=== PATIENT | female | born 1930 | race Caucasian/White ===

== ENCOUNTER 2017-07-09 12:59 | Inpatient (IN) | payer OTHER ==
[~2017-07-09] VITALS: Ht 157.5 cm; Wt 67.1 kg
--- NOTE | 2017-07-09 13:03 | ED GENERAL ADULT ---
History of Present Illness General Chief Complaint: Nausea, Vomiting, Diarrhea Stated Complaint: BIBA NVD X 3 DAYS Source: patient, family, EMS Exam Limitations: language barrier Vital Signs & Intake/Output Vital Signs & Intake/Output Vital Signs Date Time Temp Pulse Resp B/P B/P Pulse O2 O2 Flow FiO2 Mean Ox Delivery Rate 07/10 799 98.1 101 26 142/6 96 Room Air 07/10 0000 98.1 82 20 140/58 94 Room Air Room Air 07/09 2029 96 Nasal 2.0L Cannula 07/09 2029 98.5 84 18 132/60 96 Nasal 2.0L Cannula 07/09 1928 98.3 54 95 133/85 94 Nasal 2.0L Cannula 07/09 1811 97.9 92 18 123/56 97 Nasal 2.0L Cannula 07/09 1615 98 Room Air Room Air 07/09 1611 97.5 83 18 130/63 98 Nasal 2.0L Cannula 07/09 1312 72 20 151/85 99 Room Air ED Intake and Output 07/10 0000 07/09 1200 Intake Total 2322 Output Total 1750 Balance 572 Intake, IV 2122 Intake, Oral 200 Number 0 Bowel Movements Output, Urine 1750 Patient 155 lb Weight Weight Bed scale Measurement Method Allergies Coded Allergies: No Known Allergies (07/09/17) Triage Nurses Notes Reviewed? yes Onset: Gradual Duration: day(s): (3) Timing: remote history Injury Environment: home Severity: moderate No Modifying Factors: none Associated Symptoms: N/V : No Patient currently breastfeeds: No HPI: Patient is a 86-year-old female with history of hyperlipidemia, hyperthyroid presenting to the emergency with chief complaint of nausea vomiting and diarrhea. For the past 3 days. Patient also reports associated generalized abdominal discomfort. She reports that the nausea and vomiting and diarrhea started today. 3 episodes of emesis, 2 episodes of diarrhea. Diarrhea was loose and watery. No blood in the emesis or stool. No sick contacts or recent travel. Denies recent antibiotic use. Denies any fevers or chills. Positive malaise. Has not taken anything at home to help with symptoms. She tried eating a small amount of redness was morning without success and she vomited it up. No one else in the house is sick. Denies any urinary frequency urgency or dysuria. No chest pain palpitations or shortness of breath. Denies any back pain. No numbness or tingling. (Tanya Phillips) Reconcile Medications Alprazolam 0.5 MG TABLET 1 TAB PO DAILY NEEDED anxiety (Reported) Aspirin (Aspirin*) 81 MG TAB.CHEW 1 TAB PO DAILY cholesterol (Reported) Levothyroxine Sodium 100 MCG TABLET 1 TAB PO DAILY hypothryoid (Reported) Simvastatin (Simvastatin*) 80 MG TABLET 1 TAB PO DAILY cholesterol (Reported) (Nazia Zaman MD) Past History Travel History Traveled to [place] past 21 day No Medical History Any Pertinent Medical History? see below for history Surgical History Surgical History: bladder sx Family History Hx Contributory? No (Tanya Phillips) Medical History Cardiovascular: hyperlipidemia Endocrine: HYPERTHYROIDISM (Nazia Zaman MD) Review of Systems Review of Systems Constitutional: Reports: see HPI, malaise. Comments Review of systems: See HPI, All other systems negative. Constitutional, no chills fever or weight loss HEENT: No visual changes no sore throat no congestion Cardiovascular: No chest pain ,palpitation , orthopnea or ankle swelling Skin, no jaundice no rashes Respiratory: No dyspnea cough sputum or hemoptysis GI: Positive nausea, vomiting and diarrhea : No dysuria No hematuria Muscle skeletal: no back pain, no neck pain, Neurologic: No numbness no confusion no headaches Psych: No stress anxiety or depression,. Heme/endocrine: No bruising no bleeding no polyuria or polydipsia Immunology: No splenectomy or history of AIDS (Tanya Phillips) Physical Exam Physical Exam General Appearance: well developed/nourished, alert, awake, anxious, comfortable Comments: Well-developed well-nourished person in no acute distress HEENT: Pupils equally round and reactive to light and accommodation. Nose is atraumatic. External auditory canal and Tympanic membranes clear. Pharynx normal. No swelling or edema. Dry oral mucosa. Clearing secretions without difficulty Neck: Supple, no lymphadenopathy Back: Nontender, no CVA tenderness. Feces noted coming up from pants at the pant line. Cardiovascular: Regular rate and rhythms no murmurs rubs or gallops, normal JVP Respiratory: Chest nontender. No respiratory distress.breath sounds slightly diminished to auscultation bilaterally Abdomen: Soft, mildly tender to palpation of the left and right lower quadrants without rebound or guarding. Also tender to palpation in the epigastric region without rebound or guarding. Nondistended, no appreciable organomegaly. Hyperactive bowel sounds. No ascites Extremity: No edema, no calf tenderness to palpation, normal and equal pulses. Neuro: Alert oriented x3, motor sensory normal, cranial nerves II through XII grossly intact. Skin: No appreciable rash on exposed skin, skin is warm and dry. Psych: Slightly anxious appearing, memory and judgment is normal. Core Measures ACS in differential dx? Yes CVA/TIA Diagnosis: No Sepsis Present: No Sepsis Focused Exam Completed? No (Irina KU,Tanya) Progress Differential Diagnoses I considered the following diagnoses in my evaluation of the patient: Gastroenteritis, pancreatitis, gastritis, dehydration, electrolyte abnormality, diverticulitis, ischemic bowel, nonspecific colitis, ACS, uti, pyelo Plan of Care: Orders Procedure Date/time Status ICU LAB BUNDLE 07/11 0500 Active CBC WITHOUT DIFFERENTIAL 07/11 0500 Active Regular Diet 07/10 L Active ICU LAB BUNDLE 07/10 1400 Active ICU LAB BUNDLE 07/10 1000 Complete BASIC ELECTROLYTES PLUS BUN&CR 07/10 0600 Complete BASIC ELECTROLYTES PLUS BUN&CR 07/10 0400 Complete Weight 07/10 UNK Active Intake & Output 07/10 UNK Complete Regular Diet 07/09 D Complete ICU LAB BUNDLE 07/09 2327 Complete CULTURE,URINE 07/09 2247 Active Wound Care/Dressing 07/09 2056 Complete Weight 07/09 2056 Complete VTE Mechanical Prophylaxis 07/09 2056 Active Vital Signs 07/09 2056 Active Turn and Reposition 07/09 2056 Complete Drains/Tubes 07/09 2056 Complete Teach/Educate 07/09 2056 Active Skin Integrity Protocol 07/09 2056 Complete Skin/Pressure Ulcer Assess (Sk 07/09 2056 Active Precautions 07/09 2056 Active Pain Treatment and Response 07/09 2056 Active Nutritional Intake, Monitor 07/09 2056 Active Isolation 07/09 2056 Active CIWA 07/09 2056 Complete Patient Care Conference 07/09 2056 Active Activity/Ambulation 07/09 2056 Active VRE ACTIVE SURVIELLANCE 07/09 1951 Active ACTIVE SURVEILLANCE NARES 07/09 1951 Active FingerStick- Glucose 07/09 193 Active URINE LYTES, SPOT 07/09 1845 Complete MAGNESIUM 07/09 1800 Complete BASIC ELECTROLYTES PLUS BUN&CR 07/09 1800 Complete STOOL: R/O YERSINIA 07/09 1727 Active STOOL:R/O VIBRIO 07/09 1727 Active OVA AND PARASITE ANTIGENS 07/09 1727 Active CULTURE,STOOL 07/09 1555 Active C.DIFFICILE 07/09 1555 Active Add-on Test (ER Only) 07/09 1550 Active ED Holding Orders 07/09 1548 Active Admit to inpatient 07/09 1548 Active Vital Signs 07/09 1548 Active Code Status 07/09 1548 Active Patient Data 07/09 1546 Active Add-on Test (ER Only) 07/09 1546 Active CULTURE,URINE 07/09 1520 Active Intake & Output 07/09 1458 Active THYROID STIMULATING HORMONE 07/09 1412 Complete SERUM OSMOLALITY 07/09 1412 Complete FREE T4 07/09 1412 Complete OXYGEN SETUP CHG 07/09 UNK Complete OXYGEN 07/09 UNK Complete OXYGEN TRANSPORT 07/09 UNK Complete OXYGEN SETUP (GEN) 07/09 UNK Complete VTE Mechanical Prophylaxis 07/09 UNK Active Ashley, Insertion/Removal/Asses 07/09 UNK Active Current Medications Sig/Octavio Start time Last Medication Dose Stop Time Status Admin Desmopressin Acetate 1 MCG BID 07/11 1000 CAN (DDAVP) Desmopressin Acetate 1 MCG BID 07/11 1000 AC (DDAVP) Sodium Chloride 50 ML (Normal Saline 50ML Bag) Atorvastatin Calcium 20 MG 1700 07/10 1700 AC (Lipitor) Enoxaparin Sodium 40 MG DAILY 07/10 1000 AC 07/10 (Lovenox) 0911 Levothyroxine Sodium 0.1 MG DAILY AC 07/10 0700 AC 07/10 (Synthroid) 0629 Dextrose/Water 1,000 ML Q13H 07/10 0215 AC 07/10 (D5W 1000) 1232 Ceftriaxone Sodium 1,000 MG DAILY 07/09 2045 AC 07/10 (Rocephin) 0911 Dextrose 25 GM ONCE ONE 07/09 1800 CAN (Dextrose 50%) 07/09 1801 Alprazolam 0.5 MG DAILY NEEDED 07/09 1715 AC 07/09 (Xanax) 07/16 1714 2319 Laboratory Tests 07/10/17 0942: Anion Gap 15, Estimated GFR > 60, Glucose 122 H, Calcium 8.0 L, Phosphorus 2.5 , Magnesium 2.0, Total Bilirubin 0.2, AST 27, ALT 33, Albumin 3.4 L 07/10/17 0605: Anion Gap 12, Estimated GFR > 60, BUN/Creatinine Ratio 22.0 07/10/17 0300: Anion Gap 11, Estimated GFR > 60, BUN/Creatinine Ratio 22.0 07/09/17 2345: Anion Gap 13, Estimated GFR > 60, Glucose 116 H, Calcium 8.5, Phosphorus 3.6, Magnesium 2.5 H, Total Bilirubin 0.4, AST 26, ALT 33, Albumin 3.5 07/09/17 2300: Sodium Cancelled, Potassium Cancelled, Chloride Cancelled, Carbon Dioxide Cancelled, Anion Gap Cancelled, BUN Cancelled, Creatinine Cancelled, BUN/ Creatinine Ratio Cancelled 07/09/17 2200: Sodium Cancelled, Potassium Cancelled, Chloride Cancelled, Carbon Dioxide Cancelled, Anion Gap Cancelled, BUN Cancelled, Creatinine Cancelled, BUN/ Creatinine Ratio Cancelled 07/09/17 1919: Anion Gap 13, Estimated GFR > 60, BUN/Creatinine Ratio 18.0, Magnesium 1.5 L 07/09/17 1845: Ur Random Creatinine 32, Ur Random Sodium 107 H, Ur Random Potassium 58, Fraction Sodium Excret 1.4 H 07/09/17 1616: Lactic Acid 1.6 07/09/17 1546: Urine Total Volume Cancelled, Ur Sodium 24 Hour Cancelled, Ur Potassium 24 Hour Cancelled 07/09/17 1520: Urine Color YEL, Urine Clarity HAZY H, Urine pH 7.0, Ur Specific [place] 1.010, Urine Protein NEG, Urine Ketones 15 H, Urine Nitrite POS H, Urine Bilirubin NEG, Urine Urobilinogen 0.2, Ur Leukocyte Esterase LARGE H, Ur Microscopic SEDIMENT EXAMINED, Urine RBC RARE, Urine WBC 50-75 H, Ur Epithelial Cells FEW, Urine Bacteria MANY H, Urine Hemoglobin TRACE-INTACT, Urine Glucose NEG 07/09/17 1412: Anion Gap 15, Estimated GFR > 60, BUN/Creatinine Ratio 26.0 H, Glucose 156 H, Serum Osmolality 260 L, Lactic Acid 2.6 H, Calcium 9.0, Total Bilirubin 0.7, AST 27, ALT 30, Alkaline Phosphatase 61, Troponin I < 0.01, Total Protein 6.8, Albumin 3.9, Globulin 2.9, Albumin/Globulin Ratio 1.3, Amylase 40, Lipase 95, TSH 1.500, Free T4 1.20, CBC w Diff NO MAN DIFF REQ, RBC 3.96 L, MCV 96.3, MCH 33.0 H, RDW 12.2, MPV 8.1, Gran % 81.3 H, Lymphocytes % 12.0 L, Monocytes % 6.3, Eosinophils % 0.1, Basophils % 0.3, Absolute Granulocytes 7.7 H, Absolute Lymphocytes 1.1 L, Absolute Monocytes 0.6, Absolute Eosinophils 0, Absolute Basophils 0, PUBS MCHC 34.2 Microbiology 07/09 2320 URINE ROUT: Urine Culture - RECD 07/09 2024 UPPER RESP: Surveillance Culture - RECD 07/09 2024 GI: Surveillance Culture - RECD 07/09 1726 STOOL: Cryptosporidium Antigen - COLB 07/09 1726 STOOL: Giardia Antigen (COLLINS) - COLB 07/09 172 STOOL: Vibrio Culture - COLB 07/09 172 STOOL: Yersinia Culture - COLB 07/09 1555 STOOL: Clostridium difficile Toxin A & B - COLB 07/09 155 STOOL: Stool Culture - COLB 07/09 1520 URINE ROUT: Urine Culture - RES GRAM NEGATIVE RODS Feeling improved after IV hydration, IV Reglan and urine no longer vomiting in the emergency department. Patient also given small doses of IV Ativan to help with anxious appearing state. Patient will be admitted for hyponatremia, likely gastroenteritis. Skin unremarkable. Also Dr. Zaman. Patient agrees with plan. Hyponatremia could explain patient's dizziness. Patient likely hyponatremic secondary to viral gastroenteritis process. Slow IV hydration as she as to avoid pontine myelinolysis. Diagnostic Imaging: Viewed by Me: Radiology Read, CT Scan. Discussed w/RAD: Radiology Read, CT Scan. Radiology Impression: PATIENT: MYRIAM DONNELLY PRESENT AGE: 86 PATIENT ACCOUNT NO: [id number] : 32 LOCATION: [facility] ORDERING PHYSICIAN: Tanya KU SERVICE DATE: 07/09/17 EXAM TYPE: CAT - CT ABD & PELVIS W IV CONTRAST EXAMINATION: CT ABDOMEN AND PELVIS WITH CONTRAST CLINICAL INFORMATION: Nausea vomiting and diarrhea. Abdominal pain. COMPARISON: None TECHNIQUE: Multidetector volumetric imaging was performed of the abdomen and pelvis following IV administration of 94 mL of Optiray 320 intravenous contrast. Sagittal and coronal reformatted images were obtained on the technologist's workstation. DLP: 422.23 mGy-cm FINDINGS: LUNG BASES: The visualized lung bases are unremarkable. LIVER, GALLBLADDER, AND BILIARY TREE: The liver is normal in size, shape, and attenuation. No focal hepatic lesion or biliary ductal dilatation is present. The gallbladder is unremarkable with no evidence of radiopaque gallstones, gallbladder wall thickening, or obvious pericholecystic inflammatory changes. PANCREAS: Unremarkable. SPLEEN: Unremarkable. ADRENAL GLANDS: Unremarkable. KIDNEYS AND URETERS: The kidneys are normal in size, shape, and attenuation. No hydronephrosis, hydroureter, or calculi seen. No perinephric stranding. BLADDER: Unremarkable. GASTROINTESTINAL TRACT: There is marked diverticulosis of the sigmoid colon. No bowel wall thickening or pericolonic edema. There is a small amount of fluid in the cul-de- sac. No mesenteric inflammation and no abscess. No bowel obstruction. Small volume of scattered stool in colon. The appendix is normal. Small bowel loops are unremarkable. Small hiatal hernia. ABDOMINAL WALL: No significant hernia is appreciated. LYMPH NODES: Normal. VASCULAR: Scattered vascular wall calcifications of aorta without aneurysm. PELVIC VISCERA: Uterus is absent. No adnexal abnormality. OSSEOUS STRUCTURES: Marked multilevel degenerative spondylosis with disc height narrowing vacuum disc phenomena endplate spurring and sclerosis and facet joint arthrosis from T12-L1 through the lumbosacral junction. Dextroscoliosis of the upper lumbar spine. IMPRESSION: Marked diverticulosis of the sigmoid colon. There is no bowel wall thickening or edema. There is a small amount of fluid in the cul-de-sac and a mild diverticulitis can therefore not be entirely excluded. DICTATED BY: Juan J Dickens MD DATE/TIME DICTATED:07/09/171507 LENS MOLD SETTER:ZARI DATE/TIME TRANSCRIBED:1507 CONFIDENTIAL, DO NOT COPY WITHOUT APPROPRIATE AUTHORIZATION. < Electronically signed in Other Vendor System> SIGNED BY: Juan J Dickens MD 1521 CXR Impression: PATIENT: MYRIAM DONNELLY PRESENT AGE : 86 PATIENT ACCOUNT NO: [id number] : 32 LOCATION: [facility] ORDERING PHYSICIAN: Tanya KU SERVICE DATE: 07/09/17-1320 EXAM TYPE: RAD - XRY-PORTABLE CHEST XRAY EXAMINATION: XR PORTABLE CHEST CLINICAL INFORMATION: Vomiting, cough COMPARISON: None TECHNIQUE: Portable frontal view of the chest was obtained. FINDINGS: Heart size is within normal range. There is minimal biapical pleural-parenchymal thickening. The lungs are clear aside from bibasilar atelectasis. No consolidation or effusion. The visualized osseous structures appear intact. IMPRESSION: Minimal bibasilar atelectasis. No pneumonia. DICTATED BY: Pretty Ba MD DATE/TIME DICTATED:07/09/171352 LENS MOLD SETTER:ZARI DATE/TIME TRANSCRIBED:07/09/171352 CONFIDENTIAL, DO NOT COPY WITHOUT APPROPRIATE AUTHORIZATION. <Electronically signed in Other Vendor System> SIGNED BY: Pretty Ba MD 07/09/17 0877 (Tanya Phillips) Differential Diagnoses I considered the following diagnoses in my evaluation of the patient: Initial ED EKG: NSR, QTC 488 (Nazia Zaman MD) Departure Departure Condition: Stable Clinical Impression Primary Impression: Hyponatremia Secondary Impressions: Diarrhea Qualifiers: Diarrhea type: unspecified type Qualified Code: R19.7 - Diarrhea, unspecified Lactic acidosis Nausea and vomiting Qualifiers: Vomiting type: unspecified Vomiting Intractability: non-intractable Qualified Code: R11.2 - Nausea with vomiting, unspecified Urinary tract infection Qualifiers: Urinary tract infection type: site unspecified Hematuria presence: without hematuria Qualified Code: N39.0 - Urinary tract infection, site not specified Departure Forms: Customer Survey General Discharge Information (Tanya Phillips) Departure Time of Disposition: 1542 Disposition: STILL A PATIENT Admission Note Spoke With: Mehran Donaldson MD Documentation of Exam: Documentation of any treatments & extenuating circumstances including Concerns Regarding Discharge (functional status, medication knowledge or non-compliance, living conditions, etc.) that warrant an admission rather than observation: [ICU MONITORING, IV FLUIDS, MONITOR QTC INTERVAL, SERIAL ABDOMINAL EXAMINATIONS, REPEAT ELECTROLYTES, CHECK SERUM OSMOLALITY, URINE FOR ELECTROLYTES] PA/VENEER LATHE OPERATOR Co-Sign Statement Statement: ED Attending supervision documentation- [X] I saw and evaluated the patient. I have also reviewed all the pertinent lab results and diagnostic results. I agree with the findings and the plan of care as documented in the PA's/VENEER LATHE OPERATOR's documentation. [X] I have reviewed the ED Record and agree with the PA's/VENEER LATHE OPERATOR's documentation. [] Additions or exceptions (if any) to the PAs/VENEER LATHE OPERATOR's note and plan are summarized below: [] (Junie FERRARI,Nazia) Critical Care Note Critical Care Note Critical Care Time: 30-74 min (Irina KU,Tanya)
--- NOTE | 2017-07-09 13:57 | RADIOLOGY REPORT ---
EXAMINATION: XR PORTABLE CHEST CLINICAL INFORMATION: Vomiting, cough COMPARISON: None TECHNIQUE: Portable frontal view of the chest was obtained. FINDINGS: Heart size is within normal range. There is minimal biapical pleural-parenchymal thickening. The lungs are clear aside from bibasilar atelectasis. No consolidation or effusion. The visualized osseous structures appear intact. IMPRESSION: Minimal bibasilar atelectasis. No pneumonia.
[2017-07-09 14:24] LABS: ABSOLUTE BASOPHIL COUNT 0 /CUMM (0.0-0.2); ABSOLUTE EOSINOPHIL COUNT 0 /CUMM (0.0-0.7); ABSOLUTE GRANULOCYTE CT 7.7 /CUMM (1.4-6.5); ABSOLUTE LYMPH COUNT 1.1 /CUMM (1.2-3.4); ABSOLUTE MONOCYTE COUNT 0.6 /CUMM (0.10-0.60); BASOPHIL % 0.3 % (0.0-2.0); EOSINOPHIL % 0.1 % (0-5); GRANULOCYTE % 81.3 % (42.2-75.2); HEMATOCRIT 38.1 % (37-47); MEAN CORPUSCULAR HGB CONC 34.2 G/DL (33.0-37.0); MEAN CORPUSCULAR VOLUME 96.3 FL (81.0-99.0); MEAN PLATELET VOLUME 8.1 FL (7.4-10.4); PLATELET COUNT 242 /CUMM (130-400); RBC DISTRIBUTION WIDTH 12.2 % (11.5-14.5); RED BLOOD CELL CT 3.96 /CUMM (4.20-5.40); WHITE BLOOD CELL COUNT 9.4 /CUMM (4.8-10.8)
--- NOTE | 2017-07-09 15:21 | CT SCAN REPORT ---
EXAMINATION: CT ABDOMEN AND PELVIS WITH CONTRAST CLINICAL INFORMATION: Nausea vomiting and diarrhea. Abdominal pain. COMPARISON: None TECHNIQUE: Multidetector volumetric imaging was performed of the abdomen and pelvis following IV administration of 94 mL of Optiray 320 intravenous contrast. Sagittal and coronal reformatted images were obtained on the technologist's workstation. DLP: 422.23 mGy-cm FINDINGS: LUNG BASES: The visualized lung bases are unremarkable. LIVER, GALLBLADDER, AND BILIARY TREE: The liver is normal in size, shape, and attenuation. No focal hepatic lesion or biliary ductal dilatation is present. The gallbladder is unremarkable with no evidence of radiopaque gallstones, gallbladder wall thickening, or obvious pericholecystic inflammatory changes. PANCREAS: Unremarkable. SPLEEN: Unremarkable. ADRENAL GLANDS: Unremarkable. KIDNEYS AND URETERS: The kidneys are normal in size, shape, and attenuation. No hydronephrosis, hydroureter, or calculi seen. No perinephric stranding. BLADDER: Unremarkable. GASTROINTESTINAL TRACT: There is marked diverticulosis of the sigmoid colon. No bowel wall thickening or pericolonic edema. There is a small amount of fluid in the cul-de-sac. No mesenteric inflammation and no abscess. No bowel obstruction. Small volume of scattered stool in colon. The appendix is normal. Small bowel loops are unremarkable. Small hiatal hernia. ABDOMINAL WALL: No significant hernia is appreciated. LYMPH NODES: Normal. VASCULAR: Scattered vascular wall calcifications of aorta without aneurysm. PELVIC VISCERA: Uterus is absent. No adnexal abnormality. OSSEOUS STRUCTURES: Marked multilevel degenerative spondylosis with disc height narrowing vacuum disc phenomena endplate spurring and sclerosis and facet joint arthrosis from T12-L1 through the lumbosacral junction. Dextroscoliosis of the upper lumbar spine. IMPRESSION: Marked diverticulosis of the sigmoid colon. There is no bowel wall thickening or edema. There is a small amount of fluid in the cul-de-sac and a mild diverticulitis can therefore not be entirely excluded.
--- NOTE | 2017-07-09 16:02 | History & Physical ---
Dorinda Cheek 07/09/17 1602: General Information and HPI MD Statement: I have seen and personally examined MYRIAM DONNELLY and documented this H&P. The patient is a 86 year old F who presented with a patient stated chief complaint of nausea/vomitting Source of Information: patient Exam Limitations: no limitations History of Present Illness: 86 year old woman with pmh significant for hypothyroidism, HLD brought in by for evaluation of diarrhea and vomiting of 1 day duration. Patient states that she has not been feeling very well for the last 2 days and started to have nonbloody watery 3-4 episodes of diarrhea today associated with nonbloody 3-4 episodes of vomiting. Associated with diffuse nonradiating abdominal pain which is colicky in nature. She reports decreased by mouth intake. About a month ago she had similar symptoms and went to her PCP Dr. Robinson Giron and was given antibiotic at that time. Not remember the name of the antibiotic. She also sees a GI doctor for what she says is frequent bowel movements denies being hospitalized recently. Denies fever, chills shortness pain, chest pain, palpitations, headaches, contacts, recent travel, change in diet vision changes, syncope, dysuria or seizures. When asked about Desmopressin she is not aware why she is on it. Her son does not know why she is on Desmo. He also does not think that she has an issue with low sodium. Allergies/Medications Allergies: Coded Allergies: No Known Allergies (07/09/17) Home Med list Alprazolam 0.5 MG TABLET 1 TAB PO DAILY NEEDED anxiety (Reported) Aspirin (Aspirin*) 81 MG TAB.CHEW 1 TAB PO DAILY cholesterol (Reported) Levothyroxine Sodium 100 MCG TABLET 1 TAB PO DAILY hypothryoid (Reported) Simvastatin (Simvastatin*) 80 MG TABLET 1 TAB PO DAILY cholesterol (Reported) Compliance With Home Meds: GOOD Past History Travel History Traveled to [place] past 21 day No Medical History Neurological: NONE EENT: NONE Cardiovascular: hyperlipidemia Respiratory: NONE Gastrointestinal: NONE Hepatic: NONE Renal: NONE Musculoskeletal: NONE Psychiatric: NONE Endocrine: HYPERTHYROIDISM Surgical History Surgical History: bladder sx Past Family/Social History Psychosocial History Where do you live? Home Who Do You Live With? spouse Services at Home: None Primary Language: Kuwaiti Smoking Status: Never Smoked ETOH Use: denies use Functional Ability ADLs Independent: dressing, eating, toileting, bathing. Ambulation: independent IADLs Independent: shopping, housework, finances, food prep, telephone, transportation , medication admin. Review of Systems Review of Systems Constitutional: Denies: chills, diaphoresis, fever, malaise, weakness, unexplained weight loss. Cardiovascular: Denies: chest pain, edema, orthopena, palpitations, peripheral edema, syncope. Respiratory: Denies: cough, hemoptysis, orthopnea, short of breath, sputum production, stridor, wheezing. GI: Reports: see HPI. Genitourinary: Reports: frequency. Exam & Diagnostic Data Last 24 Hrs of Vital Signs/I&O Vital Signs Date Time Temp Pulse Resp B/P B/P Pulse O2 O2 Flow FiO2 Mean Ox Delivery Rate 07/09 1615 98 Room Air Room Air 07/09 161 97.5 83 18 130/63 98 Nasal 2.0L Cannula 07/09 1312 72 20 151/85 99 Room Air Intake & Output 07/09 1600 07/09 0800 07/09 0000 Intake Total 1000 Output Total 200 Balance 800 Intake, IV 1000 Output, Urine 200 Patient 165 lb Weight Weight Estimated Measurement Method Physical Exam General Appearance Alert, Oriented X3, Cooperative, No Acute Distress Skin No Rashes, No Breakdown, No Significant Lesion Skin Temp/Moisture Exam: Cool/Dry HEENT EOMI, very dry mucous membranes Neck No JVD Lymphatic Cervical nl Cardiovascular Regular Rate, Normal S1, Normal S2, No Murmurs Lungs Clear to Auscultation, Normal Air Movement Abdomen Normal Bowel Sounds, Soft, diffuse tenderness to palpation Neurological Normal Speech, Strength at 5/5 X4 Ext, Normal Tone, Sensation Intact, Cranial Nerves 3-12 NL Extremities No Edema Diagnostic Data CXR Results SERVICE DATE: 07/09/171320 EXAM TYPE: RAD - XRY-PORTABLE CHEST XRAY FINDINGS: Heart size is within normal range. There is minimal biapical pleural-parenchymal thickening. The lungs are clear aside from bibasilar atelectasis. No consolidation or effusion. The visualized osseous structures appear intact. IMPRESSION: Minimal bibasilar atelectasis. No pneumonia. Other Results SERVICE DATE: 07/09/17-1406 EXAM TYPE: CAT - CT ABD & PELVIS W IV CONTRAST FINDINGS: LUNG BASES: The visualized lung bases are unremarkable. LIVER, GALLBLADDER, AND BILIARY TREE: The liver is normal in size, shape, and attenuation. No focal hepatic lesion or biliary ductal dilatation is present. The gallbladder is unremarkable with no evidence of radiopaque gallstones, gallbladder wall thickening, or obvious pericholecystic inflammatory changes. PANCREAS: Unremarkable. SPLEEN: Unremarkable. ADRENAL GLANDS: Unremarkable. KIDNEYS AND URETERS: The kidneys are normal in size, shape, and attenuation. No hydronephrosis, hydroureter, or calculi seen. No perinephric stranding. BLADDER: Unremarkable. GASTROINTESTINAL TRACT: There is marked diverticulosis of the sigmoid colon. No bowel wall thickening or pericolonic edema. There is a small amount of fluid in the cul-de-sac. No mesenteric inflammation and no abscess. No bowel obstruction. Small volume of scattered stool in colon. The appendix is normal. Small bowel loops are unremarkable. Small hiatal hernia. ABDOMINAL WALL: No significant hernia is appreciated. LYMPH NODES: Normal. VASCULAR: Scattered vascular wall calcifications of aorta without aneurysm. PELVIC VISCERA: Uterus is absent. No adnexal abnormality. OSSEOUS STRUCTURES: Marked multilevel degenerative spondylosis with disc height narrowing vacuum disc phenomena endplate spurring and sclerosis and facet joint arthrosis from T12-L1 through the lumbosacral junction. Dextroscoliosis of the upper lumbar spine. IMPRESSION: Marked diverticulosis of the sigmoid colon. There is no bowel wall thickening or edema. There is a small amount of fluid in the cul-de-sac and a mild diverticulitis can therefore not be entirely excluded. Assessment/Plan Assessment: 86 year old woman with pmh significant for hypothyroidism, HLD brought in by for evaluation of diarrhea and vomiting of 1 day duration. Here for evaluation of one day history of nausea and vomiting. Vitals on admission: aFebrile, heart rate 72, respiratory 20, blood pressure 151 /85 saturating 99% on room air. Significant for no leukocytosis, hyponatremia of 120, corrected sodium is 121, serum osmolality of 260, glucose of 156, lactic acid 2.60 trended down to 1.6, renal LFTs, troponin negative 1, normal amylase, lipase and thyroid function test. Urine lyites and Fena pending, UA positive for nitrates and leukocyte esterase Chest x-ray :Minimal bibasilar atelectasis. No pneumonia. CT abdomen and pelvis with contrast : Marked diverticulosis of the sigmoid colon. No bowel wall thickening or edema. There is a small amount of fluid in the cul-de-sac and a mild diverticulitis can therefore not be entirely excluded. In ED was given 2 L normal saline Assessment: Hypotonic hypovolemic hyponatremia secondary to GI losses, unclear well as to why she is on desmopressin. ? mild diverticulosis Plan: Admit to ICU for close monitoring of her sodium, currently she is not having any altered mental status. BEP every 4 hourly, Normal saline at 100 mL per hour sodium, will try not to increase NA by not more than than 0.5ml/hr/8 hrs. repeat NA was 126. Nephrology consulted obtained, recomendation is to begin D5W to avoid over correction. will monitor closely. Please call her PCP office tomorrow to see whether her hyponatremia is acute or chronic condition and the reason for her to be on Desmopressin. Her PCP is Dr. Robinson Giron office number [phone] Hold desmopressin for now as it can cause hyponatremia 14% Complaining of urinary symptoms with UA positive for nitrates ans leuk esterase. Will start IV ceftriaxone. Continue levothyroxine, statin, aspirin DVT prophylaxis subcutaneous Lovenox Full code Regular diet As Ranked By This Provider Problem List: 1. Diarrhea Qualifiers Diarrhea type: unspecified type Qualified Code: R19.7 - Diarrhea, unspecified 2. Nausea and vomiting Qualifiers Vomiting type: unspecified Vomiting Intractability: non-intractable Qualified Code: R11.2 - Nausea with vomiting, unspecified 3. Hyponatremia Core Measures/Misc (03/18) Acute Coronary Syndrome ACS Diagnosis: No Congestive Heart Failure Congestive Heart Failure Diagnosis No Cerebrovascular Accident CVA/TIA Diagnosis: No VTE (View Protocol) VTE Risk Factors Age>40 No Mechanical VTE Prophylaxis d/t N/A MechProphylax Ordered No VTE Pharm Prophylaxis d/t NA PharmProphylax ordered Sepsis (View protocol) Sepsis Present: No Mehran Donaldson MD 07/09/17 5088: Attending MD Review Statement Attending Statement Attending MD Statement: examined this patient, discuss w/resident/PA/SLIP CASTER, agreed w/resident/PA/SLIP CASTER, discussed with family, reviewed EMR data (avail), reviewed images, amended to note Attending Assessment/Plan: The patient is an 86 yo female with h/o hypothyroidism & HL & on chronic Desmopressin therapy (?) who presented in the [place] ED with c/o 1 day h/o nausea/vomiting, mild abdominal discomfort and some diarrhea and weakness. She denied any fever, chills, severe pains, etc. In the ED was noted to have hyponatremia with Na 120. Physical Exam: VS: T 97.5, P 72, R 20, BP 151/84, PO 99% RA HEENT: eyes- PERRLA, EOMI sal- very dry mucosa Neck: no JVD/bruits Chest: clear Cor: RRR nl S1, S2 w/o murm Abd: BS+, softly distended, minimal diffuse tenderness, w/o guarding or rebound, - HSM Ext: trace edema, pulses 2+ Neuro: alert, poor historian, non-focal exam, mild generalized weakness, did not test gait Labs/Tests- as above Impression/Plan: #Hyponatremia- appears to be related to volume depletion. The patient has also been on ?Desmopressin therapy (?DI). The patient was given 2L NS in ED prior to our seeing and serum Na corrected too quickly from 120-126. DDAVP may also be playing role. Plan: Admit to ICU for close monitoring of serum Na q4h. Nephrology consult obtained and now will begin D5W to avoid over correction. Close monitoring of I/O's and neuro signs. Hold DDAVP. #Gastritis/Gastroenteritis- patient with 1 day h/o nausea/vomiting. ? viral vs related to DDAVP. Plan: Will monitor symptoms. Check stool studies if diarrhea. Zofran prn. #Hypothyroid- on Levothyroxine. Plan: Check TSH and continue Levothyroxine. #HL- on Simvastatin. Plan: Hold Simvastatin due to GI upset at present. #Anxiety- is on Alprazolam. Says PRN Plan: Please check [facility] to see if she is actually taking each day- concern regarding potential withdrawal. Will obtain OP records from her PCP in [place] tomorrow- ? Desmopressin/DI?
[2017-07-09] MEDS ORDERED: SIMVASTATIN80 M1 PO (17:05)
[2017-07-09] MEDS ORDERED: ALPRAZOLAM0.5 M4 PO (17:05)
[2017-07-09] MEDS ORDERED: LEVOTHYROXINE100 MC1 PO (17:05)
[2017-07-09] MEDS ORDERED: ASPIRIN81 M4 PO (17:07)
[2017-07-09 20:30] VITALS: BP 132/60
--- NOTE | 2017-07-09 22:50 | Admission Certification ---
Admission Certification Certification Statement - As attending physician, I certify that at the time of - admission, based on clinical presentation, severity of - symptoms, need for further diagnostic testing and - therapeutic interventions, and risk of adverse outcomes - without in-hospital treatment, in my clinical assessment, - this patient requires an acute hospital stay for a minimum - of two nights or longer. I have also considered psychsocial - factors such as support system, advanced age, financial - issues, cognitive issues, and failed out-patient treatments, - past re-admission history, safety of patient, and lack of - compliance as applicable. Specific rationale supporting this admission is: Patient needs admission to ICU for symptomatic severe hyponatremia. Rx with IV fluids, Nephrology consult. stop DDAVP, close follow I/O's and neurologic symptoms.
[2017-07-10] VITALS: BP 140/58
[2017-07-10 08:00] VITALS: BP 142/6
--- NOTE | 2017-07-10 08:35 | PN- Resident CRCU ---
Donna FERRARI,[facility] 07/10/17 0835: Subjective HPI/CRCU Issues: Hyponatremia 24 Hour Events: Ms Roach was seen and examined this morning. She is resting comfortably in bed. She is alert and oriented 3. She endorses no issues overnight and states that she is very comfortable in her current room. 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 She denies any mental status disturbances and her speech remains cogent. Denies any chest pain or dyspnea and dyspnea on exertion. She does report that she was started on the medication by her urologist because she had multiple episodes of urinary incontinence overnight. She's never had an issue with her sodium in the past. She does report that prior to coming in she did have multiple episodes of vomiting owing to gastroenteritis. She does also endorse diarrhea which she reports improved since admission. Patient denies any fever, chills, nausea, vomiting she denies any weakness. Prior to being brought in she denies being exposed to any ill contacts. Objective Vital Signs & I&O Last 8 Hrs of Vitals and I&O: Intake & Output 07/10 1600 Intake Total 1452 Output Total 325 Balance 1127 Intake, IV 872 Intake, Oral 580 Number 1 Bowel Movements Output, Urine 325 Patient 70.307 kg Weight Weight Bed scale Measurement Method Exam General Appearance: well developed/nourished, no apparent distress, alert, awake , anxious Neck: normal inspection Respiratory: normal breath sounds, chest non-tender, no respiratory distress Cardiovascular: regular rate/rhythm Gastrointestinal: normal bowel sounds, soft Extremities: normal inspection, normal capillary refill Cranial Nerves: normal hearing, normal speech Skin: intact, normal color Skin Temp/Moisture Exam: Warm/Dry Sepsis Skin Exam (color): Normal for Ethnicity Current Medications: Current Medications Sig/Octavio Start time Last Medication Dose Route Stop Time Status Admin Alprazolam 0.5 MG DAILY NEEDED 07/09 1715 AC 07/09 PO 07/16 1714 2319 Atorvastatin Calcium 20 MG 1700 07/10 1700 AC PO Ceftriaxone Sodium 1,000 MG DAILY 07/09 2045 AC 07/10 IV 0911 Desmopressin Acetate 1 MCG BID 07/11 1000 CAN IV Desmopressin Acetate 1 MCG BID 07/11 1000 AC Sodium Chloride 50 ML IV Desmopressin Acetate 2 MCG ONCE ONE 07/10 0215 DC 07/10 IV 07/10 0216 0329 Dextrose 25 GM ONCE ONE 07/09 1800 CAN IV 07/09 1801 Dextrose/Sodium 1,000 ML Q10H 07/09 2215 DC 07/09 Chloride IV 2239 Dextrose/Water 1,000 ML Q13H 07/10 0215 AC 07/10 IV 1232 Dextrose/Water 1,000 ML .Q5H 07/09 2200 DC IV 07/10 0259 Dextrose/Water 1,000 ML .Q5H 07/09 2145 DC IV Enoxaparin Sodium 40 MG DAILY 07/10 1000 AC 07/10 SC 0911 Levothyroxine Sodium 0.1 MG DAILY AC 07/10 0700 AC 07/10 PO 0629 Lidocaine See Dose BID PRN 07/10 1415 AC Insts (1) TOP Magnesium Sulfate 1 GM Q2H 07/09 2145 DC 07/09 Dextrose/Water 100 ML IV 07/10 0144 2307 Sodium Chloride 1,000 ML Q10H 07/09 1715 DC 07/09 IV 2045 Sodium Chloride 1,000 ML BOLUS ONE 07/09 1600 DC 07/09 IV 07/09 1759 1609 Sodium Chloride 1,000 ML ONCE ONE 07/09 1315 DC 07/09 IV 07/09 1954 1404 Dose Instructions: (1)Lidocaine: APPLY Impression/Plan Impression/Problem List Impression: Ms Mary is a pleasant 86 year old woman with pmh significant for nocturnal urinary incontinence (on desmopressin) hypothyroidism, HLD brought in by ambulance for evaluation of diarrhea and vomiting of 1 day duration. She was found to be acutely hyponatremic and has subsequently been admitted to the CRCU, where she is undergoing treatment for Hyponatremia. Problem List: Hyponatremia in the setting of acute GI losses via emesis and diarrhea History of uncontrolled nocturia on desmopressin History of Hypothyroidism History of Anxiety Histoty of hyperlipidemia Assessment: #Hyponatremia in the setting of acute GI losses via emesis and diarrhea It appears the patient was aggressively corrected over the past 24 hours. We will attempt to reverse this and bring down the NA to 129. Continue d5W at 100 mL per hour. We will also pay close attendtion for the next 7-10 days to monitor for any acute signs of CPM. Follow NA every 4-6 hours with a tarted NA of 129. Once the patient is at this level, we can then switch fluids from d5 to d5 normal saline. Continue to monitor I's and O's Lidocaine Jelly for Comfort from [place] Anti emetics PRN Urinary Tract Infection Continue IV Cefrtiraxone If urine cultures negative and lack of growth, can follow off abx. #History of uncontrolled nocturia on desmopressin Records from PCP in chart Desmopressin 1-2 g IV twice a day #History of Hypothyroidism Continue Levothyroxine, may consider additional lab work as an out patient. #History of Anxiety Alprazolam PRN #History of hyperlipidemia Continue Statin Diet: bedside swallow evaluation reveled no acute pathology, and diet was advanced Code: FC DVT ppx: Problem List: 1. Hyponatremia 2. Nausea and vomiting 3. Urinary tract infection Pain Ratin Pain Location: No pain endorsed Tomorrow's Labs & Rationales: CBC: Monitor Electrolytes in the setting of acute illness. ICU Bundle: monitor electrolytes in the setting of acute illness. Monitor sodium as well due to acute illness. Plan DVT/Prophylaxis: Mehran Vasquez MD 07/10/17 1039: Attending MD Review Statement Attending Sign Off Attending Cosign Statement: I have: examined this patient, reviewed [facility] EMR data, discussd w/resident/PA/ PACKAGE SEALER MACHINE, discussed mgmt plan w/pt, agreed w/resident/PA/PACKAGE SEALER MACHINE, amended to note. Other Findings: The patient was seen and discussed with house staff and Nephrology (Dr. Person). Appreciate nephrology input. Nausea/vomiting/diarrhea- GI symptoms have resolved. Serum sodium levels as noted corrected quickly and now on D5W per Nephrology. Neuro status has been stable. It is still unclear as to why the patient was on Desmopressin, however may have been prescribed by Urology for nocturia. Dr. Thompson is obtaining records from PCP. Dr. Person reviewed EPIC record and discovered she had a Na level of 137 in 09/14, however had a sodium of 126 in 2013. Await full records.
--- NOTE | 2017-07-10 09:32 | Cons- CRCU ---
General Information and HPI Allergies/Medications Allergies: Coded Allergies: No Known Allergies (07/09/17) Home Med List: Alprazolam 0.5 MG TABLET 1 TAB PO DAILY NEEDED anxiety (Reported) Aspirin (Aspirin*) 81 MG TAB.CHEW 1 TAB PO DAILY cholesterol (Reported) Levothyroxine Sodium 100 MCG TABLET 1 TAB PO DAILY hypothryoid (Reported) Simvastatin (Simvastatin*) 80 MG TABLET 1 TAB PO DAILY cholesterol (Reported) Past History Travel History [facility]ed [facility] past 21 day No Medical History Blood Transfusion Hx: No Neurological: NONE EENT: NONE Cardiovascular: hyperlipidemia Respiratory: NONE Gastrointestinal: NONE Hepatic: NONE Renal: NONE Musculoskeletal: NONE Psychiatric: NONE Endocrine: HYPERTHYROIDISM Blood Disorders: NONE Cancer(s): NONE 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 Home Who Do You Live With? spouse Services at Home: None Primary Language: [facility] Smoking Status: Never Smoked ETOH Use: denies use Functional Ability ADLs Independent: dressing, eating, toileting, bathing. Ambulation: independent IADLs Independent: shopping, housework, finances, food prep, telephone, transportation , medication admin. Assessment/Plan Consult Acknowledgment - Thank you for your consult request.
--- NOTE | 2017-07-10 09:59 | Cons- Nephrology ---
General Information and HPI Consulting Request Date of Consult: 07/10/17 Requested By: Mehran Donaldson MD Reason for Consult: Hyponatremia Source of Information: patient, old records Exam Limitations: no limitations History of Present Illness: Patient is an 86-year-old woman who has a history of nocturia for which she takes desmopressin home. She was found upon presentation the emergency room to have a serum sodium of 120. This was late yesterday afternoon. She was given 2 L of normal saline. A repeat sodium was 126 and then went up to 134 and now 136 this morning. She has no previous history of kidney disease. No history of kidney stones kidney infections. No history of hypertension or diabetes. Her review of systems with regards to her genitourinary tract was essentially negative except for the fact that she reports a history of bladder surgery and nocturia. For the nocturia she takes desmopressin before she goes to bed. Reviewing outside records, her most recent sodium had been 137 from a year or so ago. She reports that she had been given the desmopressin by urologist at [facility]. The other pertinent observation is that the patient had 2 L of normal saline administered upon presentation to the emergency room. Her urinary sodium was 107. However, it is suspected that this specimen was obtained after the administration of 2 L of normal saline. She was otherwise feeling well up until yesterday with the nausea and vomiting. In that regard, she denied any abdominal pain. It is now resolved. No one else in her family has been ill with a similar illness. Allergies/Medications Allergies: Coded Allergies: No Known Allergies (07/09/17) Home Med List: Alprazolam 0.5 MG TABLET 1 TAB PO DAILY NEEDED anxiety (Reported) Aspirin (Aspirin*) 81 MG TAB.CHEW 1 TAB PO DAILY cholesterol (Reported) Levothyroxine Sodium 100 MCG TABLET 1 TAB PO DAILY hypothryoid (Reported) Simvastatin (Simvastatin*) 80 MG TABLET 1 TAB PO DAILY cholesterol (Reported) Current Medications: Current Medications Sig/Octavio Start time Last Medication Dose Route Stop Time Status Admin Acetaminophen 0 .STK-MED ONE 07/09 1431 DC IV Acetaminophen 1,000 MG ONCE ONE 07/09 1430 DC 07/09 N/A 1 UNIT IV 07/09 1444 1440 Alprazolam 0.5 MG DAILY NEEDED 07/09 1715 AC 07/09 PO 01/15 1714 2319 Atorvastatin Calcium 20 MG 1700 07/10 1700 AC PO Ceftriaxone Sodium 1,000 MG DAILY 07/09 2045 AC 07/10 IV 0911 Desmopressin Acetate 2 MCG ONCE ONE 07/10 0215 DC 07/10 IV 07/10 0216 0329 Dextrose 25 GM ONCE ONE 07/09 1800 CAN IV 07/09 1801 Dextrose/Sodium 1,000 ML Q10H 07/09 2215 DC 07/09 Chloride IV 2239 Dextrose/Water 1,000 ML Q13H 07/10 0215 AC 07/10 IV 0216 Dextrose/Water 1,000 ML .Q5H 07/09 2200 DC IV 07/10 0259 Dextrose/Water 1,000 ML .Q5H 07/09 2145 DC IV Enoxaparin Sodium 40 MG DAILY 07/10 1000 AC 07/10 SC 0911 Levothyroxine Sodium 0.1 MG DAILY AC 07/10 0700 AC 07/10 PO 0629 Lorazepam 0 .STK-MED ONE 07/09 1514 DC .ROUTE Lorazepam 0.5 MG ONCE ONE 07/09 1500 DC 07/09 IV 07/09 1501 1530 Magnesium Sulfate 1 GM Q2H 07/09 2145 DC 07/09 Dextrose/Water 100 ML IV 07/10 0144 2307 Metoclopramide HCl 0 .STK-MED ONE 07/09 1348 DC .ROUTE Metoclopramide HCl 10 MG ONCE ONE 07/09 1330 DC 07/09 IV 07/09 1331 1404 Sodium Chloride 1,000 ML Q10H 07/09 1715 DC 07/09 IV 2045 Sodium Chloride 1,000 ML BOLUS ONE 07/09 1600 DC 07/09 IV 07/09 1759 1609 Sodium Chloride 1,000 ML ONCE ONE 07/09 1315 DC 07/09 IV 07/09 1954 1404 Review of Systems Review of Systems Constitutional: Reports: fever, malaise, weakness. Denies: chills, diaphoresis. EENTM: Denies: blurred vision, double vision, visual changes. Cardiovascular: Denies: chest pain, edema, orthopena, palpitations, peripheral edema. Respiratory: Denies: cough, hemoptysis, orthopnea, short of breath. GI: Reports: abdominal pain, diarrhea, nausea, vomiting. Denies: distention, bowel incontinence, melena, bloody stool. Genitourinary: Reports: nocturia. Denies: discharge, dysuria, frequency, hematuria, hesitation , pain (nocturia), urgency. Musculoskeletal: Denies: back pain, gout, joint pain, joint swelling, muscle pain, muscle stiffness. Skin: Denies: jaundice, lesions, rash. Neurological/Psychological: Reports: headache. Denies: anxiety, numbness, petit mal seizures, tingling, tremors, tonic-clonic seizures. Hematologic/Endocrine: Denies: bruising, bleeding, polyuria. 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 Home Who Do You Live With? spouse Services at Home: None Primary Language: [facility] Smoking Status: Never Smoked ETOH Use: denies use Functional Ability ADLs Independent: dressing, eating, toileting, bathing. Ambulation: independent IADLs Independent: shopping, housework, finances, food prep, telephone, transportation , medication admin. Exam & Diagnostic Data Vital Signs and I&O Vital Signs Date Time Temp Pulse Resp B/P B/P Pulse O2 O2 Flow FiO2 Mean Ox Delivery Rate 07/10 0800 98.1 101 26 142/6 96 Room Air 07/10 0000 98.1 82 20 140/58 94 Room Air Room Air 07/09 2029 96 Nasal 2.0L Cannula 07/09 2029 98.5 84 18 132/60 96 Nasal 2.0L Cannula 07/09 1928 98.3 54 95 133/85 94 Nasal 2.0L Cannula 07/09 1811 97.9 92 18 123/56 97 Nasal 2.0L Cannula 07/09 1615 98 Room Air Room Air 07/09 1611 97.5 83 18 130/63 98 Nasal 2.0L Cannula 07/09 1312 72 20 151/85 99 Room Air Intake & Output 07/10 1600 07/10 0400 07/09 1600 07/09 0400 07/08 1600 07/08 0400 Intake Total 616 1322 1000 Output Total 1500 1550 200 Balance -884 -228 800 Intake, IV 616 1122 1000 Intake, Oral 0 200 Number 0 0 Bowel Movements Output, Urine 1500 1550 200 Patient 155 lb 165 lb Weight Weight Bed scale Estimated Measurement Method Physical Exam General Appearance: well developed/nourished, no apparent distress, alert, awake , comfortable, obese Head: atraumatic, normal appearance Eyes: Bilateral: normal appearance, PERRL, EOMI. Ears, Nose, Throat: normal pharynx, normal ENT inspection, hearing grossly normal, septal hematoma Neck: normal inspection, supple, full range of motion, JVD, tender midline Respiratory: normal breath sounds, chest non-tender, lungs clear Cardiovascular: regular rate/rhythm, normal peripheral pulses, norml femoral pulses equa Peripheral Pulses: 2+ popliteal (R), 2+ popliteal (L), 2+ tibialis posterior (R), 2+ tibialis posterior (L), 2+ dorsalis pedis (R), 2+ dorsalis pedis (L) Gastrointestinal: normal bowel sounds, soft, non-tender, no organomegaly Back: normal inspection, normal range of motion, no vertebral tenderness Extremities: normal inspection, normal capillary refill, normal range of motion, no edema Neurologic/Psych: no motor/sensory deficits, awake, alert, oriented x 3, no gross neurologic deficits Cranial Nerves: normal hearing, normal speech, PERRL Skin: intact, normal color, warm/dry Lymphatic: no anterior cervical emily Results Pertinent Lab Results: Laboratory Tests 07/10 07/10 07/10 07/09 07/09 0942 0605 0300 2345 2300 Chemistry Sodium (137 - 145 mmol/L) Pending 137 138 136 L Cancelled Potassium (3.5 - 5.1 mmol/L) Pending 3.6 3.7 3.7 Cancelled Chloride (98 - 107 mmol/L) Pending 102 104 101 Cancelled Carbon Dioxide (22 - 30 mmol/L) Pending 23 23 22 Cancelled Anion Gap (5 - 16) Pending 12 11 13 Cancelled BUN (7 - 17 mg/dL) Pending 11 11 12 Cancelled Creatinine (0.5 - 1.0 mg/dL) Pending 0.5 0.5 0.6 Cancelled Estimated GFR (>60 ml/min) > 60 > 60 > 60 BUN/Creatinine Ratio (7 - 25 %) 22.0 22.0 Cancelled Glucose (65 - 99 mg/dL) Pending 116 H Calcium (8.4 - 10.2 mg/dL) Pending 8.5 Phosphorus (2.5 - 4.5 mg/dL) Pending 3.6 Magnesium (1.6 - 2.3 mg/dL) Pending 2.5 H Total Bilirubin (0.2 - 1.3 mg/dL) Pending 0.4 AST (14 - 36 U/L) Pending 26 ALT (9 - 52 U/L) Pending 33 Albumin (3.5 - 5.0 g/dL) Pending 3.5 07/09 07/09 07/09 07/09 07/09 2200 1919 1845 1616 1546 Chemistry Sodium (137 - 145 mmol/L) Cancelled 126 L Potassium (3.5 - 5.1 mmol/L) Cancelled 3.8 Chloride (98 - 107 mmol/L) Cancelled 93 L Carbon Dioxide (22 - 30 mmol/L) Cancelled 20 L Anion Gap (5 - 16) Cancelled 13 BUN (7 - 17 mg/dL) Cancelled 9 Creatinine (0.5 - 1.0 mg/dL) Cancelled 0.5 Estimated GFR (>60 ml/min) > 60 BUN/Creatinine Ratio (7 - 25 %) Cancelled 18.0 Lactic Acid (0.7 - 2.1 mmol/L) 1.6 Magnesium (1.6 - 2.3 mg/dL) 1.5 L Urines Ur Random Creatinine (mg/dL) 32 Ur Random Sodium (30 - 90 mmol/L) 107 H Ur Random Potassium (mmol/L) 58 Urine Total Volume Cancelled Ur Sodium 24 Hour Cancelled Fraction Sodium Excret (<1% %) 1.4 H Ur Potassium 24 Hour Cancelled 07/09 07/09 1520 1412 Chemistry Sodium (137 - 145 mmol/L) 120 L Potassium (3.5 - 5.1 mmol/L) 4.1 Chloride (98 - 107 mmol/L) 84 L Carbon Dioxide (22 - 30 mmol/L) 22 Anion Gap (5 - 16) 15 BUN (7 - 17 mg/dL) 13 Creatinine (0.5 - 1.0 mg/dL) 0.5 Estimated GFR (>60 ml/min) > 60 BUN/Creatinine Ratio (7 - 25 %) 26.0 H Glucose (65 - 99 mg/dL) 156 H Serum Osmolality (285 - 295 MOSM/KG) 260 L Lactic Acid (0.7 - 2.1 mmol/L) 2.6 H Calcium (8.4 - 10.2 mg/dL) 9.0 Total Bilirubin (0.2 - 1.3 mg/dL) 0.7 AST (14 - 36 U/L) 27 ALT (9 - 52 U/L) 30 Alkaline Phosphatase (<127 U/L) 61 Troponin I (< 0.11 ng/ml) < 0.01 Total Protein (6.3 - 8.2 g/dL) 6.8 Albumin (3.5 - 5.0 g/dL) 3.9 Globulin (1.9 - 4.2 gm/dL) 2.9 Albumin/Globulin Ratio (1.1 - 2.2 %) 1.3 Amylase (30 - 110 U/L) 40 Lipase (23 - 300 U/L) 95 TSH (0.270 - 4.200 uIU/mL) 1.500 Free T4 (0.85 - 1.93 ng/dL) 1.20 Hematology CBC w Diff NO MAN DIFF REQ WBC (4.8 - 10.8 /CUMM) 9.4 RBC (4.20 - 5.40 /CUMM) 3.96 L Hgb (12.0 - 16.0 G/DL) 13.1 Hct (37 - 47 %) 38.1 MCV (81.0 - 99.0 FL) 96.3 MCH (27.0 - 31.0 PG) 33.0 H RDW (11.5 - 14.5 %) 12.2 Plt Count (130 - 400 /CUMM) 242 MPV (7.4 - 10.4 FL) 8.1 Gran % (42.2 - 75.2 %) 81.3 H Lymphocytes % (20.5 - 51.1 %) 12.0 L Monocytes % (1.7 - 9.3 %) 6.3 Eosinophils % (0 - 5 %) 0.1 Basophils % (0.0 - 2.0 %) 0.3 Absolute Granulocytes (1.4 - 6.5 /CUMM) 7.7 H Absolute Lymphocytes (1.2 - 3.4 /CUMM) 1.1 L Absolute Monocytes (0.10 - 0.60 /CUMM) 0.6 Absolute Eosinophils (0.0 - 0.7 /CUMM) 0 Absolute Basophils (0.0 - 0.2 /CUMM) 0 PUBS MCHC (33.0 - 37.0 G/DL) 34.2 Urines Urine Color (YEL,AMB,STR) YEL Urine Clarity (CLEAR) HAZY H Urine pH (5.0 - 8.0) 7.0 Ur Specific [place] (1.001 - 1.035) 1.010 Urine Protein (NEG,<30 MG/DL) NEG Urine Ketones (NEG) 15 H Urine Nitrite (NEG) POS H Urine Bilirubin (NEG) NEG Urine Urobilinogen (0.1 - 1.0 EU/dl) 0.2 Ur Leukocyte Esterase (NEG) LARGE H Ur Microscopic SEDIMENT EXAMINED Urine RBC (0 - 5 /HPF) RARE Urine WBC (0 - 2 /HPF) 50-75 H Ur Epithelial Cells (NONE,FEW) FEW Urine Bacteria (NEG/NONE) MANY H Urine Hemoglobin (NEG) TRACE-INTACT Urine Glucose (N MG/DL) NEG 07/09 0000 Chemistry Sodium Cancelled Potassium Cancelled Chloride Cancelled Carbon Dioxide Cancelled Anion Gap Cancelled BUN Cancelled Creatinine Cancelled BUN/Creatinine Ratio Cancelled Assessment/Plan Assessment/Recommendations Assessment: 1. Hyponatremia. This is rapidly corrected. Suspect that this was acute. She was on desmopressin at home for urinary frequency at night. She presented not hypotensive but certainly appearing volume depleted to the examiners at the time. She received 2 L of saline which has resulted in her sodium going from 120-137. This could potentially place her at risk for developing central pontine myelinolysis. Keep in mind, she does not fit the profile of the person at risk for this condition. Specifically, she is not an alcoholic who appears to be nutritionally depleted. The time course of her illness seems to be quite acute. Specifically, she developed nausea and vomiting coupled with diarrhea with poor by mouth intake. She presented to the emergency room was found to have a sodium of 120. Her urinary sodium of 107 may have been obtained after saline was administered. It may be of interest to obtain a repeat urine sodium. Outpatient labs demonstrate that her sodium has been normal in the recent past. At this point, she should receive D5W at 100 mL per hour with the administration of desmopressin with the goal to get her serum sodium 2 roughly 126 to 129. Her sodium then needs to be allowed to rise back to normal over the course of another 24 hours. Her clinical appearance is such that it is suspected that this may be a matter of being too zealous with regards to slowly treating the hyponatremia. Patient herself appears quite fine. However, CPM is often not seen for 7 days to 2 weeks after the fact. 2. Nausea vomiting. It is difficult to know whether or not this was cause or effect. The hyponatremia seems to be primarily a matter of hypovolemic hyponatremia. The rapidity with which it recovered points toward hypovolemia as the provoking factor here. Poor by mouth intake with nausea and vomiting and replacing with free water can do this. In addition, she does have desmopressin as a medication at night. I would expect at the desmopressin would be long gone from her system by the time she presents the emergency room. Conversely, the half-life of antidiuretic hormone is roughly 30-40 minutes. With rapid correction of her volume status, antidiuretic hormone is suppressed and a brisk dilute diuresis occurs. This results in rapid correction of the sodium. 3. Nocturia. This may be related to some sort of bladder issue. Will await records from urology. Recommendations: 1. Strict I's and O's 2. Daily weights 3. D5W at 100 mL per hour 4. Desmopressin 1-2 g IV twice a day
[2017-07-10 16:00] VITALS: BP 124/68
[2017-07-11] VITALS: BP 138/72
--- NOTE | 2017-07-11 07:25 | PN- Resident CRCU ---
See Addendum Subjective HPI/CRCU Issues: Ms Mary was seen and examined this morning. Resting comfortably in bed. Denies any issues overnight. She states that she feels well rested. Explianed multiple times that she would like to be discharged owing to the fact that she wants to go home and look after her . She denies any changes in vision or any headache. States that her nausea and diarrhea have resolved. She has been tolerating by mouth intake well. Denies any fever, chills, nausea, vomiting. 24 Hour Events: Frequent monitoring of NA were occuring. Objective Vital Signs & I&O Last 8 Hrs of Vitals and I&O: T: 98.7, HR: 72-101. SR: RR: 18-28. 109/44-140/71. Intake: 3065. Output:3435. Exam General Appearance: well developed/nourished, no apparent distress, alert Cardiovascular: regular rate/rhythm Gastrointestinal: normal bowel sounds, soft, non-tender Extremities: normal inspection Cranial Nerves: normal hearing, normal speech Skin: intact Skin Temp/Moisture Exam: Warm/Dry Sepsis Skin Exam (color): Normal for Ethnicity Back: normal inspection Current Medications: Current Medications Sig/Octavio Start time Last Medication Dose Route Stop Time Status Admin Acetaminophen 650 MG ONCE ONE 07/11 0815 UNVr PO 07/11 0816 Alprazolam 0.5 MG DAILY NEEDED 07/09 1715 AC 07/09 PO 07/16 1714 2319 Atorvastatin Calcium 20 MG 1700 07/10 1700 AC 07/10 PO 1610 Ceftriaxone Sodium 1,000 MG DAILY 07/09 2045 AC 07/11 IV 0906 Desmopressin Acetate 1 MCG BID 07/11 1000 CAN IV Desmopressin Acetate 1 MCG BID 07/11 1000 AC Sodium Chloride 50 ML IV Desmopressin Acetate 1 MCG ONCE ONE 07/11 0230 DC 07/11 SC 07/11 0231 0237 Dextrose/Water 1,000 ML Q13H 07/10 2130 AC 07/10 IV 2243 Dextrose/Water 1,000 ML Q13H 07/10 0215 DC 07/10 IV 1232 Enoxaparin Sodium 40 MG DAILY 07/10 1000 AC 07/11 SC 0906 Levothyroxine Sodium 0.1 MG DAILY AC 07/10 0700 AC 01/10 PO 0651 Lidocaine See Dose BID PRN 07/10 1415 AC 07/11 Insts (1) TOP 0242 Phosphate 250 MG PC AND AT BEDTIME 07/11 1300 UNVr PO Sodium Chloride 1,000 ML .Q20H 07/10 2030 CAN IV Sodium Chloride 1,000 ML Q20H 07/10 2030 CAN IV Dose Instructions: (1)Lidocaine: APPLY Impression/Plan Impression/Problem List Impression: Ms Mary is a pleasant 86 year old woman with pmh significant for nocturnal urinary incontinence (on desmopressin) hypothyroidism, HLD brought in by ambulance for evaluation of diarrhea and vomiting of 1 day duration. She was found to be acutely hyponatremic and has subsequently been admitted to the [facility], where she is undergoing treatment for Hyponatremia. Problem List: Hyponatremia in the setting of acute GI losses via emesis and diarrhea History of uncontrolled nocturia on desmopressin History of Hypothyroidism History of Anxiety Histoty of hyperlipidemia Assessment: #Hyponatremia in the setting of acute GI losses via emesis and diarrhea Patient has corrected 13 units over the last 48 hours. Will check an Na at 1600. If within 130-136, will continue to monitor. If outside the range, will defer to nephrology for additional recommendations. We will also pay close attendtion for the next 7-10 days to monitor for any acute signs of CPM. Continue to monitor I's and O's Anti emetics PRN Urinary Tract Infection Continue IV Cefrtiraxone If urine cultures negative and lack of growth, may follow off antibotics and consider asymoptomatic bacteruria. #History of uncontrolled nocturia on desmopressin Records from PCP in chart Will discontinue despmopressed. Defer to Naphrology regarding terminal make up operator/ ourpatient use. #History of Hypothyroidism Continue Levothyroxine, may consider additional lab work as an outpatient. #History of Anxiety Alprazolam PRN #History of hyperlipidemia Continue Statin Diet: Regular Code: FC DVT ppx: Problem List: 1. Urinary tract infection 2. Diarrhea 3. Nausea and vomiting 4. Hyponatremia Pain Ratin Tomorrow's Labs & Rationales: BEP in AM: Monitor Sodium in the setting of Hyponatremia Plan DVT/Prophylaxis: mechanical
[2017-07-11 07:47] LABS: ABSOLUTE BASOPHIL COUNT 0 /CUMM (0.0-0.2); ABSOLUTE EOSINOPHIL COUNT 0.3 /CUMM (0.0-0.7); ABSOLUTE GRANULOCYTE CT 3.9 /CUMM (1.4-6.5); ABSOLUTE LYMPH COUNT 1.9 /CUMM (1.2-3.4); BASOPHIL % 0.5 % (0.0-2.0); EOSINOPHIL % 3.8 % (0-5); HEMATOCRIT 35.1 % (37-47); MEAN CORPUSCULAR HGB 32.3 PG (27.0-31.0); MEAN CORPUSCULAR HGB CONC 33.5 G/DL (33.0-37.0); MEAN CORPUSCULAR VOLUME 96.4 FL (81.0-99.0); MEAN PLATELET VOLUME 9.1 FL (7.4-10.4); PLATELET COUNT 197 /CUMM (130-400); RBC DISTRIBUTION WIDTH 12.5 % (11.5-14.5); RED BLOOD CELL CT 3.64 /CUMM (4.20-5.40); WHITE BLOOD CELL COUNT 7.1 /CUMM (4.8-10.8)
[2017-07-11 08:00] VITALS: BP 140/74
--- NOTE | 2017-07-11 12:37 | PN- Nephrology ---
Assessment/Plan Assessment: 1. Hyponatremia. Please keep in mind this is not SIADH. As demonstrated before by history at least the patient's decreased sodium likely was a result of hypovolemia coupled with her use of DDAVP for her nocturia. The rapidity with which it corrected and perhaps overcorrected was related to the fact that the main cause of ADH secretion was volume depletion. The difficulty being that she went from 120 to normal in matter of a few hours. At this point, her sodium is roughly where one would hope it to be at the end of 48 hours. Suggestion: 1. Would not get discharge. 2. Stop the DDAVP. 3. Stop the fluids. Subjective Subjective: Patient feels well. Wondering about going home. 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 Explained that her kidney function is completely normal. Objective Vital Signs and I&Os Vital Signs Date Time Temp Pulse Resp B/P B/P Pulse O2 O2 Flow FiO2 Mean Ox Delivery Rate 07/11 0800 98.6 73 18 140/74 95 Room Air 07/11 0000 98.4 78 18 138/72 94 Room Air Room Air 07/10 1600 98.6 85 18 124/68 96 Room Air Intake & Output 07/11 1600 07/11 0400 07/10 1600 07/10 0400 07/09 1600 07/09 0400 Intake Total 446 1167 2068 1322 1000 Output Total 2009 1100 1825 1550 200 Balance -1564 67 243 -228 800 Intake, IV 353 244 5311 1122 1000 Intake, Oral 420 580 200 Number 0 0 1 0 Bowel Movements Output, Urine 2009 1100 1825 1550 200 Patient 151 lb 155 lb 155 lb 165 lb Weight Weight Bed scale Bed scale Bed scale Estimated Measurement Method Physical Exam: General Appearance: well developed/nourished, no apparent distress, alert, awake , comfortable, obese Head: atraumatic, normal appearance Eyes: Bilateral: normal appearance, PERRL, EOMI. Neck: normal inspection, supple, JVD, tender midline Respiratory: normal breath sounds, chest non-tender, lungs clear Cardiovascular: regular rate/rhythm, Gastrointestinal: normal bowel sounds, soft, non-tender, no organomegaly Back: normal inspection, normal range of motion, no vertebral tenderness Extremities: normal inspection, no edema Neurologic: no motor/sensory deficits, awake, alert, oriented x 3, no gross neurologic deficits Skin: intact, normal color, warm/dry Current Medications: Current Medications Sig/Octavio Start time Last Medication Dose Route Stop Time Status Admin Acetaminophen 650 MG ONCE ONE 07/11 914 DC 07/11 PO 07/11 0816 09 Alprazolam 0.5 MG DAILY NEEDED 07/09 171 AC 07/09 PO 07/16 1714 2319 Atorvastatin Calcium 20 MG 1700 07/10 1700 AC 07/10 PO 1610 Ceftriaxone Sodium 1,000 MG DAILY 07/09 204 AC 07/11 IV 0906 Desmopressin Acetate 1 MCG BID 07/11 1000 DC Sodium Chloride 50 ML IV Desmopressin Acetate 1 MCG ONCE ONE 07/11 0230 DC 07/11 SC 07/11 0231 0237 Dextrose/Water 1,000 ML Q13H 07/10 2130 DC 07/10 IV 2243 Dextrose/Water 1,000 ML Q13H 07/10 0215 DC 07/10 IV 1232 Enoxaparin Sodium 40 MG DAILY 07/10 1000 AC 07/11 SC 09 Levothyroxine Sodium 0.1 MG DAILY AC 07/10 0700 AC 07/11 PO 0651 Lidocaine See Dose BID PRN 07/10 1415 AC 07/11 Insts (1) TOP 0242 Phosphate 250 MG PC AND AT BEDTIME 07/11 1300 AC PO Sodium Chloride 1,000 ML .Q20H 07/10 2030 CAN IV Sodium Chloride 1,000 ML Q20H 07/10 2030 CAN IV Dose Instructions: (1)Lidocaine: APPLY Results Pertinent Lab Results: Laboratory Tests 07/11 07/11 07/11 07/11 1010 0625 0335 0130 Chemistry Sodium (137 - 145 mmol/L) 133 L 133 L 135 L 135 L Potassium (3.5 - 5.1 mmol/L) 3.9 Chloride (98 - 107 mmol/L) 98 Carbon Dioxide (22 - 30 mmol/L) 25 Anion Gap (5 - 16) 10 BUN (7 - 17 mg/dL) 13 Creatinine (0.5 - 1.0 mg/dL) 0.5 Estimated GFR (>60 ml/min) > 60 Glucose (65 - 99 mg/dL) 112 H Calcium (8.4 - 10.2 mg/dL) 8.2 L Phosphorus (2.5 - 4.5 mg/dL) 2.3 L Magnesium (1.6 - 2.3 mg/dL) 2.1 Total Bilirubin (0.2 - 1.3 mg/dL) 0.3 AST (14 - 36 U/L) 26 ALT (9 - 52 U/L) 34 Albumin (3.5 - 5.0 g/dL) 3.2 L Hematology CBC w Diff NO MAN DIFF REQ WBC (4.8 - 10.8 /CUMM) 7.1 RBC (4.20 - 5.40 /CUMM) 3.64 L Hgb (12.0 - 16.0 G/DL) 11.8 L Hct (37 - 47 %) 35.1 L MCV (81.0 - 99.0 FL) 96.4 MCH (27.0 - 31.0 PG) 32.3 H RDW (11.5 - 14.5 %) 12.5 Plt Count (130 - 400 /CUMM) 197 MPV (7.4 - 10.4 FL) 9.1 Gran % (42.2 - 75.2 %) 54.0 Lymphocytes % (20.5 - 51.1 %) 27.0 Monocytes % (1.7 - 9.3 %) 14.7 H Eosinophils % (0 - 5 %) 3.8 Basophils % (0.0 - 2.0 %) 0.5 Absolute Granulocytes (1.4 - 6.5 /CUMM) 3.9 Absolute Lymphocytes (1.2 - 3.4 /CUMM) 1.9 Absolute Monocytes (0.10 - 0.60 /CUMM) 1.0 H Absolute Eosinophils (0.0 - 0.7 /CUMM) 0.3 Absolute Basophils (0.0 - 0.2 /CUMM) 0 PUBS MCHC (33.0 - 37.0 G/DL) 33.5 07/10 07/10 07/10 07/10 07/10 2300 2140 2000 1755 1430 Chemistry Sodium (137 - 145 mmol/L) Cancelled 127 L Cancelled 126 L 131 L Potassium (3.5 - 5.1 mmol/L) 3.7 Chloride (98 - 107 mmol/L) 94 L Carbon Dioxide (22 - 30 mmol/L) 26 Anion Gap (5 - 16) 12 BUN (7 - 17 mg/dL) 15 Creatinine (0.5 - 1.0 mg/dL) 0.7 Estimated GFR (>60 ml/min) > 60 Glucose (65 - 99 mg/dL) 104 H Calcium (8.4 - 10.2 mg/dL) 7.9 L Phosphorus (2.5 - 4.5 mg/dL) 2.6 Magnesium (1.6 - 2.3 mg/dL) 2.1 Total Bilirubin (0.2 - 1.3 mg/dL) 0.1 L AST (14 - 36 U/L) 27 ALT (9 - 52 U/L) 33 Albumin (3.5 - 5.0 g/dL) 3.4 L 07/10 07/10 07/10 07/09 07/09 0942 0605 0300 2345 2300 Chemistry Sodium (137 - 145 mmol/L) 134 L 137 138 136 L Cancelled Potassium (3.5 - 5.1 mmol/L) 3.8 3.6 3.7 3.7 Cancelled Chloride (98 - 107 mmol/L) 97 L 102 104 101 Cancelled Carbon Dioxide (22 - 30 mmol/L) 23 23 23 22 Cancelled Anion Gap (5 - 16) 15 12 11 13 Cancelled BUN (7 - 17 mg/dL) 12 11 11 12 Cancelled Creatinine (0.5 - 1.0 mg/dL) 0.6 0.5 0.5 0.6 Cancelled Estimated GFR (>60 ml/min) > 60 > 60 > 60 > 60 BUN/Creatinine Ratio (7 - 25 %) 22.0 22.0 Cancelled Glucose (65 - 99 mg/dL) 122 H 116 H Calcium (8.4 - 10.2 mg/dL) 8.0 L 8.5 Phosphorus (2.5 - 4.5 mg/dL) 2.5 3.6 Magnesium (1.6 - 2.3 mg/dL) 2.0 2.5 H Total Bilirubin (0.2 - 1.3 mg/dL) 0.2 0.4 AST (14 - 36 U/L) 27 26 ALT (9 - 52 U/L) 33 33 Albumin (3.5 - 5.0 g/dL) 3.4 L 3.5 07/09 07/09 07/09 07/09 07/09 2200 1919 1845 1616 1546 Chemistry Sodium (137 - 145 mmol/L) Cancelled 126 L Potassium (3.5 - 5.1 mmol/L) Cancelled 3.8 Chloride (98 - 107 mmol/L) Cancelled 93 L Carbon Dioxide (22 - 30 mmol/L) Cancelled 20 L Anion Gap (5 - 16) Cancelled 13 BUN (7 - 17 mg/dL) Cancelled 9 Creatinine (0.5 - 1.0 mg/dL) Cancelled 0.5 Estimated GFR (>60 ml/min) > 60 BUN/Creatinine Ratio (7 - 25 %) Cancelled 18.0 Lactic Acid (0.7 - 2.1 mmol/L) 1.6 Magnesium (1.6 - 2.3 mg/dL) 1.5 L Urines Ur Random Creatinine (mg/dL) 32 Ur Random Sodium (30 - 90 mmol/L) 107 H Ur Random Potassium (mmol/L) 58 Urine Total Volume Cancelled Ur Sodium 24 Hour Cancelled Fraction Sodium Excret (<1% %) 1.4 H Ur Potassium 24 Hour Cancelled 07/09 07/09 1520 1412 Chemistry Sodium (137 - 145 mmol/L) 120 L Potassium (3.5 - 5.1 mmol/L) 4.1 Chloride (98 - 107 mmol/L) 84 L Carbon Dioxide (22 - 30 mmol/L) 22 Anion Gap (5 - 16) 15 BUN (7 - 17 mg/dL) 13 Creatinine (0.5 - 1.0 mg/dL) 0.5 Estimated GFR (>60 ml/min) > 60 BUN/Creatinine Ratio (7 - 25 %) 26.0 H Glucose (65 - 99 mg/dL) 156 H Serum Osmolality (285 - 295 MOSM/KG) 260 L Lactic Acid (0.7 - 2.1 mmol/L) 2.6 H Calcium (8.4 - 10.2 mg/dL) 9.0 Total Bilirubin (0.2 - 1.3 mg/dL) 0.7 AST (14 - 36 U/L) 27 ALT (9 - 52 U/L) 30 Alkaline Phosphatase (<127 U/L) 61 Troponin I (< 0.11 ng/ml) < 0.01 Total Protein (6.3 - 8.2 g/dL) 6.8 Albumin (3.5 - 5.0 g/dL) 3.9 Globulin (1.9 - 4.2 gm/dL) 2.9 Albumin/Globulin Ratio (1.1 - 2.2 %) 1.3 Amylase (30 - 110 U/L) 40 Lipase (23 - 300 U/L) 95 TSH (0.270 - 4.200 uIU/mL) 1.500 Free T4 (0.85 - 1.93 ng/dL) 1.20 Hematology CBC w Diff NO MAN DIFF REQ WBC (4.8 - 10.8 /CUMM) 9.4 RBC (4.20 - 5.40 /CUMM) 3.96 L Hgb (12.0 - 16.0 G/DL) 13.1 Hct (37 - 47 %) 38.1 MCV (81.0 - 99.0 FL) 96.3 MCH (27.0 - 31.0 PG) 33.0 H RDW (11.5 - 14.5 %) 12.2 Plt Count (130 - 400 /CUMM) 242 MPV (7.4 - 10.4 FL) 8.1 Gran % (42.2 - 75.2 %) 81.3 H Lymphocytes % (20.5 - 51.1 %) 12.0 L Monocytes % (1.7 - 9.3 %) 6.3 Eosinophils % (0 - 5 %) 0.1 Basophils % (0.0 - 2.0 %) 0.3 Absolute Granulocytes (1.4 - 6.5 /CUMM) 7.7 H Absolute Lymphocytes (1.2 - 3.4 /CUMM) 1.1 L Absolute Monocytes (0.10 - 0.60 /CUMM) 0.6 Absolute Eosinophils (0.0 - 0.7 /CUMM) 0 Absolute Basophils (0.0 - 0.2 /CUMM) 0 PUBS MCHC (33.0 - 37.0 G/DL) 34.2 Urines Urine Color (YEL,AMB,STR) YEL Urine Clarity (CLEAR) HAZY H Urine pH (5.0 - 8.0) 7.0 Ur Specific [place] (1.001 - 1.035) 1.010 Urine Protein (NEG,<30 MG/DL) NEG Urine Ketones (NEG) 15 H Urine Nitrite (NEG) POS H Urine Bilirubin (NEG) NEG Urine Urobilinogen (0.1 - 1.0 EU/dl) 0.2 Ur Leukocyte Esterase (NEG) LARGE H Ur Microscopic SEDIMENT EXAMINED Urine RBC (0 - 5 /HPF) RARE Urine WBC (0 - 2 /HPF) 50-75 H Ur Epithelial Cells (NONE,FEW) FEW Urine Bacteria (NEG/NONE) MANY H Urine Hemoglobin (NEG) TRACE-INTACT Urine Glucose (N MG/DL) NEG 07/09 0000 Chemistry Sodium Cancelled Potassium Cancelled Chloride Cancelled Carbon Dioxide Cancelled Anion Gap Cancelled BUN Cancelled Creatinine Cancelled BUN/Creatinine Ratio Cancelled
[2017-07-11 16:00] VITALS: BP 122/80
--- NOTE | 2017-07-11 16:21 | Patient Discharge Instructions ---
Discharge Instructions General Discharge Information You were seen/treated for: Hyponatremia. UTI Watch for these problems: Weakness, headache, change in vision, mental status changes. Special Instructions: Please follow up with your PCP within seven days. Your appointment with him is on 07/16/2017. Please have your PCP reconcile all your medications. Please do not take the medication: Desmopressin. [place] have provided you with a referral with a Urologist, if you feel your symptoms are uncontrolled. Diet Continue normal diet: Yes Activity Full Activity/No Limits: No (As Tolerated ) Acute Coronary Syndrome Inclusion Criteria At DC or during hospital stay patient has or had the following: ACS DIAGNOSIS No Discharge Core Measures Meds if any: Prescribed or Continued at Discharge Meds if any: NOT Prescribed or Continued at Discharge Congestive Heart Failure Inclusion Criteria At DC or during hospital stay patient has or had the following: CHF DIAGNOSIS No Discharge Core Measures Meds if any: Prescribed or Continued at Discharge Meds if any: NOT Prescribed or Continued at Discharge Cerebrovascular accident Inclusion Criteria At DC or during hospital stay patient has or had the following: CVA/TIA Diagnosis No Discharge Core Measures Meds if any: Prescribed or Continued at Discharge Meds if any: NOT Prescribed or Continued at Discharge Venous thromboembolism Inclusion Criteria VTE Diagnosis No VTE Type NONE VTE Confirmed by (Test) NONE Discharge Core Measures - Per Current guidelines, there needs to be overlap - treatment for the first 5 days of Warfarin therapy. - If discharged on Warfarin prior to 5 days of - overlap therapy, the patient will need to be - assessed for post discharge needs including - *Post discharge parental anticoagulation - *Warfarin and/or parental anticoagulation education - *Follow up date to check INR post discharge At least 5 days overlap therapy as Inpatient No Meds if any: Prescribed or Continued at Discharge Note: Overlap Therapy is Warfarin and Anticoagulant Meds if any: NOT Prescribed or Continued at Discharge
[2017-07-12] VITALS: BP 112/68
--- NOTE | 2017-07-12 07:20 | PN- Housestaff ---
See Addendum Subjective Follow-up For: Hyponatremia Subjective: Ms Roach was seen and examined this morning. Resting comfortably in bed. She was able to get some rest overnight and feels refreshed this morning. Denies any vision changes or changes in mentation. She states that her headache is improved compared to yesterday. Denies any fever , chills, nausea, vomiting. States that she would like to be discharged today. Review of Systems Constitutional: Reports: see HPI. Objective Last 24 Hrs of Vital Signs/I&O Vital Signs Date Time Temp Pulse Resp B/P B/P Pulse O2 O2 Flow FiO2 Mean Ox Delivery Rate 07/12 0800 98.2 80 20 120/70 94 Room Air 07/12 0000 94 Room Air 07/12 0000 98.4 71 20 112/68 97 Room Air 07/11 1600 98.6 80 20 122/80 96 Room Air Intake & Output 07/12 1600 07/12 0800 07/12 0000 Intake Total 50 50 Output Total 1700 Balance -1650 50 Intake, Oral 50 50 Output, Urine 1700 Patient 67.132 kg Weight Physical Exam General Appearance: Alert, Oriented X3, Cooperative Lymphatic: Cervical nl Cardiovascular: Regular Rate, Normal S1, Normal S2 Lungs: Clear to Auscultation Abdomen: Normal Bowel Sounds, Soft, No Tenderness Neurological: Normal Gait, Normal Speech, Strength at 5/5 X4 Ext Extremities: No Edema Vascular: Normal Pulses Current Medications: Current Medications Sig/Octavio Start time Last Medication Dose Route Stop Time Status Admin Acetaminophen 650 MG Q4P PRN 07/11 1700 AC 07/12 PO 1033 Alprazolam 0.5 MG DAILY NEEDED 07/09 1715 AC 07/11 PO 07/16 1714 2145 Atorvastatin Calcium 20 MG 1700 07/10 1700 AC 07/11 PO 1653 Ceftriaxone Sodium 1,000 MG DAILY 07/09 2045 DC 07/11 IV 0906 Enoxaparin Sodium 40 MG DAILY 07/10 1000 AC 07/12 SC 1004 Levothyroxine Sodium 0.1 MG DAILY AC 07/10 0700 AC 07/12 PO 0650 Lidocaine See Dose BID PRN 07/10 1415 AC 07/11 Insts (1) TOP 0242 Nitrofurantoin 50 MG Q6 07/12 1200 AC PO Phosphate 250 MG PC AND AT BEDTIME 01/10 1300 AC 07/12 PO 1003 Dose Instructions: (1)Lidocaine: APPLY Last 24 Hrs of Lab/Tanner Results Last 24 Hrs of Labs/Mics: Laboratory Tests 07/12/17 0500: Anion Gap 10, Estimated GFR > 60, BUN/Creatinine Ratio 18.0 07/12/17 0030: 07/11/17 1600: Assessment/Plan Assessment: Ms Mary is a pleasant 86 year old woman with pmh significant for nocturnal urinary incontinence (on desmopressin) hypothyroidism, HLD brought in by ambulance for evaluation of diarrhea and vomiting of 1 day duration. She was found to be acutely hyponatremic and has subsequently been admitted to the [facility], where she is undergoing treatment for Hyponatremia. Problem List: Hyponatremia in the setting of acute GI losses via emesis and diarrhea History of uncontrolled nocturia on desmopressin History of Hypothyroidism History of Anxiety Histoty of hyperlipidemia Assessment: #Hyponatremia in the setting of acute GI losses via emesis and diarrhea Patient has corrected 18 units over the last 72 hours. We will also pay close attention for the next 7-10 days to monitor for any acute signs of CPM. Continue to monitor I's and O's Anti emetics PRN Urinary Tract Infection Medications converted to Nitrofurantion after sensitivities reported back. Will receive a total of 7 days of abx therapy. #History of uncontrolled nocturia on desmopressin Records from PCP in chart Will discontinue desmopressin. I spoke to the patients PCP, will provide a referral to Urologist to f/u as an outpatient. #History of Hypothyroidism Continue Levothyroxine, may consider additional lab work as an outpatient. #History of Anxiety Alprazolam PRN #History of hyperlipidemia Continue Statin Diet: Regular Code: FC DVT ppx: Problem List: 1. Nausea and vomiting 2. Urinary tract infection Pain Ratin Pain Location: No Pain Pain Goal: Remain pain free Pain Plan: Acteaminophen PRN Tomorrow's Labs & Rationales: No Labs needed - likely will be discharged
[2017-07-12 08:00] VITALS: BP 120/70
[2017-07-12] MEDS ORDERED: MACROBID 100 M100 MG PO ×2 (11:11→12:12)
--- NOTE | 2017-07-12 12:02 | Discharge Summary ---
Visit Information Visit Dates Admission Date: 07/09/17 Discharge Date: 07/12/2017 Hospital Course Course Attending Physician: Dr Kaylan Donaldson Primary Care Physician: Jaci FERRARI,[facility] Course: Ms Mary is a pleasant 86 year old woman with pmh significant for nocturnal urinary incontinence (taking desmopressin) hypothyroidism, HLD brought in by ambulance for evaluation of diarrhea and vomiting of 1 day duration. She was found to be acutely hyponatremic. At the time of presentation her physical exam and vital signs were within normal limits and her labs were notable for sodium of 120. She was subsequently admitted to the [facility], the following is a summary of the care she received under us. #Hyponatremia in the setting of acute GI losses via emesis and diarrhea The patient was aggressively hydrated with on IVF for hydration. This initially over corrected her sodium (120-137). We obtained a nephrology consultation. Hyponatremia was likely the result of her vomiting coupled with the use of DDAVP. Patient had a Fraction Sodium Excretion done with was 1.4. Urinary Sodium was 107. The patient was hydrated with D5W. Her sodium was frequently checked. On day two of admission, the patient was continued on Desmopressin 1-2 g IV twice a day. Prior to discharge IVF and desmopressin were stopped, and the patient was continued on a normal diet. Due to nocturia the patient was given a referral to follow up with urologist as an outpatient. Daily weights and I's and O's were attained. The patient's primary care physician was also updated on the patient's progress and the patient was requested to follow-up for repeat studies on 07/16/2017. #Urinary Tract Infection At the time of presentation, the patient did have pyuria. Urine Cultures grew E.Coli. Patient was initially started on IV ceftriaxone. She was covered with Ceftriaxone over the admission. She was subsequently transitioned to nitrofurantoin prior to discharge. This was to be continued as an outpatient. She received a total of 7 days of antibiotic coverage. #Nausea and Vomiting. hat the patient had vomiting likely due to questionable gastroenteritis. Over the course of the admission this stabilized and patient was able to tolerate by mouth intake. #History of Hypothyroidism We continued the pateint on her Levothyroxine. #History of Anxiety Alprazolam was given PRN. #History of hyperlipidemia Patient was continued on her statin. Diet: Regular DVT ppx: She was obtained on ALPS over the admission. Code: Full Code Allergies: Coded Allergies: No Known Allergies (07/09/17) Pertinent Lab Results: SERVICE DATE: 07/09/17 EXAM TYPE: RAD - XRY-PORTABLE CHEST XRAY EXAMINATION: XR PORTABLE CHEST CLINICAL INFORMATION: Vomiting, cough COMPARISON: None TECHNIQUE: Portable frontal view of the chest was obtained. FINDINGS: Heart size is within normal range. There is minimal biapical pleural-parenchymal thickening. The lungs are clear aside from bibasilar atelectasis. No consolidation or effusion. The visualized osseous structures appear intact. IMPRESSION: Minimal bibasilar atelectasis. No pneumonia. DICTATED BY: Pretty Ba MD SERVICE DATE: 07/09/17140 EXAM TYPE: CAT - CT ABD & PELVIS W IV CONTRAST EXAMINATION: CT ABDOMEN AND PELVIS WITH CONTRAST CLINICAL INFORMATION: Nausea vomiting and diarrhea. Abdominal pain. COMPARISON: None TECHNIQUE: Multidetector volumetric imaging was performed of the abdomen and pelvis following IV administration of 94 mL of Optiray 320 intravenous contrast. Sagittal and coronal reformatted images were obtained on the technologist's workstation. DLP: 422.23 mGy-cm FINDINGS: LUNG BASES: The visualized lung bases are unremarkable. LIVER, GALLBLADDER, AND BILIARY TREE: The liver is normal in size, shape, and attenuation. No focal hepatic lesion or biliary ductal dilatation is present. The gallbladder is unremarkable with no evidence of radiopaque gallstones, gallbladder wall thickening, or obvious pericholecystic inflammatory changes. PANCREAS: Unremarkable. SPLEEN: Unremarkable. ADRENAL GLANDS: Unremarkable. KIDNEYS AND URETERS: The kidneys are normal in size, shape, and attenuation. No hydronephrosis, hydroureter, or calculi seen. No perinephric stranding. BLADDER: Unremarkable. GASTROINTESTINAL TRACT: There is marked diverticulosis of the sigmoid colon. No bowel wall thickening or pericolonic edema. There is a small amount of fluid in the cul-de-sac. No mesenteric inflammation and no abscess. No bowel obstruction. Small volume of scattered stool in colon. The appendix is normal. Small bowel loops are unremarkable. Small hiatal hernia. ABDOMINAL WALL: No significant hernia is appreciated. LYMPH NODES: Normal. VASCULAR: Scattered vascular wall calcifications of aorta without aneurysm. PELVIC VISCERA: Uterus is absent. No adnexal abnormality. OSSEOUS STRUCTURES: Marked multilevel degenerative spondylosis with disc height narrowing vacuum disc phenomena endplate spurring and sclerosis and facet joint arthrosis from T12-L1 through the lumbosacral junction. Dextroscoliosis of the upper lumbar spine. IMPRESSION: Marked diverticulosis of the sigmoid colon. There is no bowel wall thickening or edema. There is a small amount of fluid in the cul-de-sac and a mild diverticulitis can therefore not be entirely excluded. DICTATED BY: Juan J Dickens MD Disposition Summary Disposition Principal Diagnosis: Symptomatic hyponatremia. Additional Diagnosis: UTI Hypothyrodism Anxiety Discharge Disposition: home or self care Discharge Instructions General Discharge Information Code Status: Full Code Patient's Diet: Heart Healthy Patient's Activity: As Tolerated Follow-Up Instructions/Appts: Please follow up with your PCP within seven days. Your appointment with him is on 07/16/2017. Please have your PCP reconcile all your medications. Please do not take the medication: Desmopressin. [place] have provided you with a referral with a Urologist, if you feel your symptoms are uncontrolled. Medications at Discharge Discharge Medications: Continue taking these medications: Alprazolam (Alprazolam) 0.5 MG TABLET 1 Tablet ORAL DAILY NEEDED Qty = 180 Comments: Last Taken:07/11/17 Time: 9:45 PM Levothyroxine Sodium (Levothyroxine Sodium) 100 MCG TABLET 1 Tablet ORAL DAILY Qty = 90 Comments: Last Taken:07/12/17 Time: 6:50 AM Simvastatin (Simvastatin*) 80 MG TABLET 1 Tablet ORAL DAILY Qty = 90 Comments: Last Taken:07/11/17 Time: 5:00 PM Aspirin (Aspirin*) 81 MG TAB.CHEW 1 Tablet ORAL DAILY Comments: DID NOT RECEIVE WHILE IN HOSPITAL Start taking the following new medications: Nitrofurantoin Monohyd/M-Cryst (Macrobid 100 MG Capsule) 100 MG CAPSULE 1 Capsule ORAL TWICE DAILY Qty = 7 No Refills Instructions: .Take twice per day till 07/15, then stop. Comments: Last Taken:07/12/17 Time: Copies To: Ford FERRARI,Shahrzad; Raza FERRARI,Mejia Beatty MD,Robinson Attending Review Statement Documenting Attending: Mehran Donaldson MD Other Findings: The patient was seen and agree with the plan of care upon discharge.
== END 2017-07-12 14:00 | disposition home health service (06) | DRG 641 ==
LOC: ERH 12:59 → ERHI 15:48 → CRI 15:48 → ENRESERV 19:12 → ENTRNSPT 20:04 → CRI 20:34 → CMPTRNSPT 20:37 → ENTRNSPT 07-12 13:49 → CRI 07-12 14:00 → EDTRNSPTSTS 07-12 14:03 → EDTRNSPT 07-12 14:03 → CMPTRNSPT 07-12 14:15
PROVIDERS: Physician Assistant; Student in an Organized Health Care Education/Training Program
DX: E87.1 Hypo-osmolality and hyponatremia (principal); N39.0 Urinary tract infection, site not specified; G30.9 Alzheimer's disease, unspecified; F02.80 Dementia in other diseases classified elsewhere, unspecified severity, without behavioral disturbance, psychotic disturbance, mood disturbance, and anxiety; E03.9 Hypothyroidism, unspecified; K52.9 Noninfective gastroenteritis and colitis, unspecified; E78.5 Hyperlipidemia, unspecified; F41.9 Anxiety disorder, unspecified; K57.30 Diverticulosis of large intestine without perforation or abscess without bleeding
CPT/HCPCS: 84133; 84300; CCU; 36415; 71045; 74177; 81001; 82436; 82570; 87045; 87086; 87328; 87329; 93005; 93010; 96361; 96374; 96375; 99291; J0131; J0696; J1650; J2597; J2765; J7060